=== PATIENT | male | born 1990 ===

== ENCOUNTER 2018-02-03 08:31 | Emergency (ER) | payer OTHER ==
[~2018-02-03] VITALS: Ht 167.6 cm; Wt 81.6 kg
== END 2018-02-03 12:01 | disposition home or self-care (01) ==
LOC: ER 08:31
DX: B34.9 Viral infection, unspecified (principal); J32.0 Chronic maxillary sinusitis; J11.1 Influenza due to unidentified influenza virus with other respiratory manifestations